=== PATIENT | male | born 1955 | race Caucasian/White ===

== ENCOUNTER 2020-06-04 11:30 | Outpatient (RCR) | payer BC ==
[~2020-06-04] VITALS: Ht 167.7 cm; Wt 79.5 kg
[2020-06-04] MEDS ORDERED: LISI10TA2 PO (12:29)
[2020-06-04] MEDS ORDERED: TMSL.4C PO (12:29)
== END 2020-06-04 12:44 | disposition home or self-care (01) ==
LOC: PREOP 11:30
PROVIDERS: ATTEND Surgery
DX: Z01.818 Encounter for other preprocedural examination (principal)

== ENCOUNTER 2020-06-10 10:01 | Day surgery (SDC) | payer BC ==
[~2020-06-10] VITALS: Ht 167.7 cm; Wt 79.5 kg
[2020-06-10] VITALS (8 sets, daily range): BP systolic 101–142; BP diastolic 61–90
[~2020-06-10 10:01] MED LIST: LISI10TA2 PO; TMSL.4C PO
[2020-06-10] MEDS ORDERED: ceFAZolin 2 GM IV Premixed 50 ML ONE (10:29)
[2020-06-10] MEDS ORDERED: LIDOCAINE/EPI 1%-1:100,000 (XYLOCAINE) 50 ML ONE (10:44)
[2020-06-10] MEDS ORDERED: ceFAZolin 2 GM IV Premixed 50 ML IV ONE (10:45)
[2020-06-10] MEDS: LACTATED RINGERS 1,000 ML IV PRN ×2 (10:47→12:21)
--- NOTE | 2020-06-10 10:51 | Progress Note-Pre Operative ---
Pre-Operative Progress Note H&P Reviewed The H&P was reviewed, patient examined and no changes noted. Date Seen by Provider: Jun 10, 2020 Time Seen by Provider: 10:50 Date H&P Reviewed: Jun 10, 2020 Time H&P Reviewed: 10:45 Pre-Operative Diagnosis: Symptomatic umbilical hernia NIKUNJ GREEN APRN Jun 10, 2020 10:51
[2020-06-10] MEDS ORDERED: HYDR-3817 PO (10:53)
--- NOTE | 2020-06-10 10:53 | Discharge Inst-Surgical ---
D/C Lap Instructions-KIDO Reconcile Patient Problems Problems Reviewed?: Yes New, Converted, or Re-Newed RX: RX on Chart Follow Up Appt in 2 weeks Activity as tolerated No driving for 24 hours No driving while on pain medications Incentive Spirometry use every 2 hours while awake Regular Diet Symptoms to Report: Fever over 101 degree F, Nausea/Vomiting Infection Signs and Symptoms to report: Increased redness, Foul odor of wound, Increased drainage Bathing instructions: May shower Operative Area Clean/Dry; Keep incision clean/dry If any problems/questions: Contact your physician or go to Emergency Room NIKUNJ GREEN APRN Jun 10, 2020 10:53
[2020-06-10] MEDS ORDERED: ACETAMINOPHEN 325 MG TABLET PO PRN (11:00)
[2020-06-10] MEDS ORDERED: morphine INJ 10 MG/ML 1ML (SYR OR VIAL) IVP PRN (11:00)
[2020-06-10] MEDS ORDERED: ONDANSETRON 4 MG/2 ML (SDV) Z0FRAN IVP PRN ×2 (11:00→13:00)
[2020-06-10] MEDS ORDERED: HYDROcodone/APAP 5 MG/325 MG (LORTAB) TAB PO ONE (11:00)
[2020-06-10] MEDS ORDERED: fentaNYL INJECTION 100 MCG/2 ML AMP ONE (11:18)
[2020-06-10] MEDS ORDERED: MIDAZOLAM 2 MG/2 ML (VERSED) VIAL ONE (11:19)
[2020-06-10] MEDS ORDERED: proPOfol 200 MG/20 ML (DIPRIVAN) VIAL IV ONE (11:26)
[2020-06-10] MEDS ORDERED: SEVOFLURANE (ULTANE) 15 ML INHAL SOLN ONE ×2 (11:26→12:24)
[2020-06-10] MEDS ORDERED: LIDOCAINE PF 2% 5 ML (XYLOCAINE) VIAL ONE (11:26)
[2020-06-10] MEDS ORDERED: ONDANSETRON 4 MG/2 ML (SDV) Z0FRAN ONE (11:26)
[2020-06-10] MEDS ORDERED: ROCURONIUM 10 MG/ML 5 ML SYRINGE IV ONE (11:27)
[2020-06-10] MEDS ORDERED: NEOSTIGMINE 3 MG/3 ML VIAL ONE (12:24)
[2020-06-10] MEDS ORDERED: GLYCOPYRROLATE 0.2 MG/ML (ROBINUL) 2 ML VIAL ONE (12:24)
--- NOTE | 2020-06-10 12:39 | Progress Note-Post Operative ---
Post-Operative Progess Note Surgeon (s)/Ornamental Metalwork Designer (s) Surgeon LOPEZ WORLEY MD Ornamental Metalwork Designer: annabella mosquera MASTER [employer] Pre-Operative Diagnosis Symptomatic umbilical hernia Post-Operative Diagnosis reducible umbilical hernia. Procedure & Operative Findings Date of Procedure 06/10/20 Procedure Performed/Findings open umbilical hernia repair with mesh. Anesthesia Type get Estimated Blood Loss Estimated blood loss (mL): minimal Specimens/Packing Specimens Removed hernia sac LOPEZ WORLEY MD Jun 10, 2020 12:39
[2020-06-10] MEDS ORDERED: MEPERIDINE (DEMEROL) INJ 50 MG/ML IVP ONE (13:00)
[2020-06-10] MEDS ORDERED: morphine INJ 10 MG/ML 1ML (SYR OR VIAL) IVP ONE (13:00)
[2020-06-10] MEDS ORDERED: fentaNYL INJECTION 100 MCG/2 ML AMP IVP ONE (13:00)
--- NOTE | 2020-06-10 13:04 | Anesthesia-General Post-Op ---
General Patient Condition Mental Status/LOC: Same as Preop Cardiovascular: Satisfactory Nausea/Vomiting: Absent Respiratory: Satisfactory Pain: Controlled Complications: Absent Post Op Complications Complications None Follow Up Care/Instructions Patient Instructions None needed. Anesthesia/Patient Condition Patient Condition Patient is doing well, no complaints, stable vital signs, no apparent adverse anesthesia problems. No complications reported per nursing. AURORA PORTILLO CRNA Jun 10, 2020 13:04
[2020-06-10] MEDS ORDERED: HYDROcodone/APAP 5 MG/325 MG (LORTAB) TAB ONE (13:54)
--- NOTE | 2020-06-10 17:17 | OPERATIVE REPORT ---
DATE OF SERVICE: 06/10/2020 PREOPERATIVE DIAGNOSIS: Symptomatic reducible umbilical hernia. POSTOPERATIVE DIAGNOSIS: Symptomatic reducible umbilical hernia with the fascia defect approximately 2 x 2 cm in size. PROCEDURE: Open umbilical hernia repair with mesh. SURGEON: Lopez Worley MD. TRAINING DIRECTOR: Alfredo Donaldson APRN. ANESTHESIA: General endotracheal. ESTIMATED BLOOD LOSS: Minimal. FINDINGS: Significant size hernia sac with a fascial defect approximately 2 cm in size. DISPOSITION: The patient tolerated the procedure well. INDICATIONS: The patient is a 65-year-old male referred over to us for an umbilical hernia repair. He states that he has had this for about 1 year; however, has grown larger in size and become painful over time. He states that a lot of his job entails heavy lifting and exertion; however, he can take the next 6 weeks off from heavy lifting and exertion. He is otherwise doing well, tolerating a regular diet and having normal bowel movements. DESCRIPTION OF PROCEDURE: The patient was brought to the operating room, laid supine on the table. After adequate IV pain and sedative medications and general endotracheal intubation, the abdomen was prepped and draped in standard surgical fashion. A 0.5% Marcaine with epinephrine was used to anesthetize the overlying skin in the supraumbilical rim and a crescent shaped skin incision made using a 15 blade. The subcutaneous tissue was then dissected using electrocautery. The hernia sac was identified and dissected out using electrocautery as well as Metzenbaum scissors. The hernia sac was then opened using Metzenbaum scissors with preperitoneal fat as well as omentum within the hernia sac, which was completely dissected out under direct visualization using electrocautery. Good hemostasis was observed. An 8 cm round-coated polypropylene mesh was placed into the defect and sutured transfascially with interrupted 0 Prolene sutures. The subcutaneous tissue was then reapproximated using 3-0 Vicryl interrupted sutures and the skin was closed using 4-0 Monocryl running subcuticular suture. Wound was then cleaned and covered with Dermabond. The umbilicus was then filled with tonsil sponges followed by 4 x 4 gauze followed by a large Op-Site. The patient tolerated the procedure well. We will start IV normal pain medication as well as a clear liquid diet. Once he is tolerating clears, has good pain control with oral pain medications and is ambulating well, we will discharge him home. Again, we will have him avoid heavy lifting and exertion definitively for the first 2 weeks; however, for a total of 6 weeks. Job ID: [id number] DocumentID: [id number] Dictated Date: 06/10/2020 12:37:19 Cleaning Manager Date: 06/10/2020 17:16:57 Dictated By: LOPEZ WORLEY MD
== END 2020-06-10 14:50 | disposition home or self-care (01) ==
LOC: SDC 10:01
PROVIDERS: ATTEND Surgery
DX: K42.9 Umbilical hernia without obstruction or gangrene (principal); I10 Essential (primary) hypertension; K21.9 Gastro-esophageal reflux disease without esophagitis; N40.0 Benign prostatic hyperplasia without lower urinary tract symptoms; Z79.899 Other long term (current) drug therapy; Z87.891 Personal history of nicotine dependence
CPT/HCPCS: 49585; 87081; 88302; C1781